=== PATIENT | female | born 1975 | race Caucasian/White ===

== ENCOUNTER 2019-02-22 12:11 | Emergency (ER) | payer OTHER ==
[~2019-02-22] VITALS: Ht 162.6 cm; Wt 68.0 kg
[2019-02-22 13:26] LABS: BASOPHILS % 0.8 % (0.0-1.0); EOSINOPHILS % 0.8 % (0.0-6.0); HEMATOCRIT 38.2 % (34.2-44.1); HEMOGLOBIN 12.8 g/dL (12.0-16.0); LYMPHOCYTES # (AUTO) 1.2 (1.0-3.2); LYMPHOCYTES % 33.7 % (18.0-39.1); MEAN CORPUSCULAR HEMOGLOBIN 30.3 pg (28-32); MEAN CORPUSCULAR HGB CONC 33.5 g/dL (31-35); MEAN CORPUSCULAR VOLUME 90.3 fL (81-99); MONOCYTES # (AUTO) 0.6 (0.2-0.8); MONOCYTES % 15.6 % (4.4-11.3); NEUTROPHILS # (AUTO) 1.8 (2.1-6.9); NEUTROPHILS % 48.8 % (38.7-80.0); PLATELET COUNT 304 x10e3/uL (140-360); RED BLOOD COUNT 4.23 x10e6/uL (3.6-5.1); RED CELL DISTRIBUTION WIDTH 14.4 % (11.7-14.4)
[2019-02-22 13:26] LABS: BILIRUBIN,URINE NEGATIVE (NEGATIVE); CLARITY,URINE CLEAR (CLEAR); KETONES,URINE NEGATIVE (NEGATIVE); LEUKOCYTE ESTERASE ,URINE NEGATIVE (NEGATIVE); NITRITE,URINE NEGATIVE (NEGATIVE); PROTEIN,URINE DIPSTICK NEGATIVE (NEGATIVE); URINE UROBILINOGEN 0.2 mg/dL (0.2 - 1)
[2019-02-22 13:30] LABS: COLOR,URINE COLORLESS (YELLOW)
[2019-02-22 13:38] LABS: BACTERIA,URINE FEW /HPF; EPITHELIAL CELLS,URINE FEW /LPF; RBC,URINE 0-5 /HPF (0-5)
[2019-02-22 13:41] LABS: ALANINE AMINOTRANSFERASE 26 IU/L (0-55); ALBUMIN 3.8 g/dL (3.5-5.0); ALBUMIN/GLOBULIN RATIO 1.1 (0.8-2.0); ALKALINE PHOSPHATASE 54 IU/L (40-150); ANION GAP 11.4 mmol/L (8-16); BLOOD UREA NITROGEN 8 mg/dL (7-26); BUN/CREATININE RATIO 12 (6-25); CALCIUM 8.9 mg/dL (8.4-10.2); CARBON DIOXIDE 22 mmol/L (22-29); CHLORIDE 105 mmol/L (98-107); CREATININE, SERUM 0.69 mg/dL (0.57-1.11); EST GLOMERULAR FILTRATION RATE > 60 ML/MIN (60-); GLUCOSE 76 mg/dL (74-118); POTASSIUM 4.4 mmol/L (3.5-5.1); SODIUM 134 mmol/L (136-145)
--- NOTE | 2019-02-22 17:03 | Diagnostic Imaging Report ---
EXAM: CT Abdomen and Pelvis WITHOUT contrast INDICATION: ^Stone protocol ^[id number] ^[id number] COMPARISON: None. TECHNIQUE: Abdomen and pelvis were scanned utilizing a multidetector helical scanner from the lung base to the pubic symphysis without administration of IV contrast. Absence of intravenous contrast decreases sensitivity for detection of focal lesions and vascular pathology. Coronal and sagittal reformations were obtained. Routine protocol was performed. IV CONTRAST: None. ORAL CONTRAST: Water RADIATION DOSE: Total DLP: 305.5 mGy*cm Estimated effective dose: (DLP x 0.015 x size factor) mSv COMPLICATIONS: None FINDINGS: LINES and TUBES: None. LOWER THORAX: Unremarkable HEPATOBILIARY: No focal hepatic lesions. No biliary ductal dilation. GALLBLADDER: Cholecystectomy. SPLEEN: No splenomegaly. PANCREAS: No focal masses or ductal dilatation. ADRENALS: No adrenal nodules KIDNEYS/URETERS: No hydronephrosis. No cystic or solid mass lesions. A 6 mm calcified stone is seen in the inferior pole of the right kidney on series 3, image 64. Additional 2 mm calcified stone is seen in the upper pole of the right kidney on image 44. A 5 mm interpolar region calcified stone is seen on image 47. Small calcification posterior to the right side of the urinary bladder on series 3, image 142 appears to represent a phlebolith rather than a distal ureteral stone. GI TRACT: No abnormal distention, wall thickening, or evidence of bowel obstruction. Scattered diverticulosis of the sigmoid colon. Appendix is normal. PELVIC ORGANS/BLADDER: The urinary bladder is moderately distended without calcifications or wall thickening. LYMPH NODES: No lymphadenopathy. VESSELS: Unremarkable. PERITONEUM / RETROPERITONEUM: No free air or fluid. BONES: Unremarkable. SOFT TISSUES: Unremarkable. IMPRESSION: 1. Bilateral nonobstructing nephrolithiasis. 2. Diverticulosis of the sigmoid colon without diverticulitis. Signed by: Dr. Rosette Cho M.D. on 02/22/2019 4:59 PM
[2019-02-22] MEDS ORDERED: ROBAXIN-750750 MG PO (18:00)
--- NOTE | 2019-02-22 18:01 | NUR ---
PATIENT BROUGHT TO TREATMENT ROOM. EVALUATED BY DR. CUEVAS.
--- NOTE | 2019-02-22 18:04 | NUR ---
PATIENT WILL [facility] PAIN MEDS AND START AT HOME
== END 2019-02-22 18:14 | disposition home or self-care (01) ==
LOC: ER 12:11
DX: M54.5 Low back pain (principal); S39.012A Strain of muscle, fascia and tendon of lower back, initial encounter; I10 Essential (primary) hypertension; M06.9 Rheumatoid arthritis, unspecified; Z87.42 Personal history of other diseases of the female genital tract
CPT/HCPCS: 36415; 74176; 80053; 81001; 84702; 85025; 99284